=== PATIENT | male | born 1990 | race Caucasian/White ===

== ENCOUNTER 2017-02-22 10:22 | Emergency (ER) | payer OTHER | END 2017-02-22 13:10 | disposition home or self-care (01) | LOC: CED 10:22 → CFTX 10:22 | DX: S71.111A Laceration without foreign body, right thigh, initial encounter (principal); F31.9 Bipolar disorder, unspecified; F17.200 Nicotine dependence, unspecified, uncomplicated; X99.1XXA Assault by knife, initial encounter; Y92.89 Other specified places as the place of occurrence of the external cause | CPT/HCPCS: 12032; 99283 ==